=== PATIENT | female | born 1995 | race African-American/Black ===

== ENCOUNTER 2017-11-22 02:10 | Emergency (ER) | payer OTHER ==
[2017-11-22 02:37] VITALS: BP 103/48; PULSE 80; TEMP 99.5; BMI 40.7
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
== END 2017-11-22 03:05 | disposition home or self-care (01) ==
LOC: FER 02:10
DX: S61.451A Open bite of right hand, initial encounter (principal); W50.3XXA Accidental bite by another person, initial encounter; Y93.89 Activity, other specified; Y92.159 Unspecified place in reform school as the place of occurrence of the external cause; Y99.0 Civilian activity done for income or pay
CPT/HCPCS: 99281-25